=== PATIENT | male | born 1980 | race Caucasian/White ===

== ENCOUNTER 2016-11-11 08:10 | Emergency (ER) | payer OTHER ==
[2016-11-11 08:16] VITALS: TEMP 98.1
--- NOTE | 2016-11-11 08:22 | CPEKG ---
Heart Rate: 83 RR Interval: 723 P-R Interval: 148 QRSD Interval: 90 QT Interval: 360 QTC Interval: 423 P [place]: 35 QRS [place]: 37 T Wave [place]: -11 EKG Severity - ABNORMAL ECG - EKG Impression: SINUS RHYTHM EKG Impression: NONSPECIFIC T ABNORMALITIES, INFERIOR LEADS Electronically Signed By: Josué Liang 11-Nov-2016 15:55:36
[2016-11-11] MEDS ORDERED: METOCLOPRAMIDE 10 MG/2 ML VIAL IVP ONE (08:37)
[2016-11-11] MEDS ORDERED: KETOROLAC 15 MG/1 ML SDV IVP ONE (08:37)
--- NOTE | 2016-11-11 08:37 | EDPHY ---
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 Patient states his last seizure was about 2 months ago. When every has a seizure is always associated with migraine headache. He usually takes ibuprofen for these. He is seizures and migraines are usually triggered by lack of sleep however he has been sleeping well recently. He does get migraine headaches when he does not have a seizure. Patient had a witnessed tonic- clonic seizure this morning. Now is a headache but is feeling improved. He was initially postictal. Headache right now is about an 8/10. It is not the worst headache of his life. It is similar to his prior episodes. No recent illness. No fevers or chills. No nausea or vomiting. He states that he was started on a new seizure medication 2 months ago. Does not recall the name. He states he has been compliant with medications. He is to be taking Lamictal but was changed off of this. ROS: 10 point Review of Systems is negative except as noted in the HPI. PMH: Seizure disorder, migraine headaches Social History: No smoking, occasional alcohol, no recreational drug use Family History: non-contributory Physical Exam: Gen: Awake, Alert, No Distress HEENT: Nose: no rhinorrhea Eyes: PERRLA, EOMI Mouth: Moist mucosa Neck: Supple, no JVD Chest: nontender, lungs clear to auscultation Heart: S1, S2 normal, no murmur Abd: Soft, non-tender, no guarding Back: no CVA tenderness, no midline tenderness Ext: no edema, non-tender Skin: no rash Neuro: CN II-XII intact, Sensation grossly intact, Strength 5/5 in bilateral upper and lower extremities - Personal History Tetanus Vaccine Date: 2009 - Medical/Surgical History Hx Asthma: No Hx Chronic Respiratory Disease: No Hx Diabetes: No Hx Cardiac Disease: No Hx Renal Disease: No Hx Cirrhosis: No Hx Alcoholism: No Hx HIV/AIDS: No Hx Splenectomy or Spleen Trauma: No Other PMH: occasional back pain/spasm,SEIZURE DISORDER, hand surgery - Social History Smoking Status: Never smoked Constitutional: Initial Vital Signs Temperature (C) 36.7 C 11/11/16 08:14 Heart Rate 81 11/11/16 08:14 Respiratory Rate 17 11/11/16 08:14 Blood Pressure 133/103 H 11/11/16 08:14 O2 Sat (%) 94 11/11/16 08:14 O2 Delivery Mode Room Air Allergies/Adverse Reactions: No Known Allergies Allergy (Verified 12/22/15 08:41) Home Medications: Medication Instructions Recorded Unknown Migraine Med 11/11/16 Medical Decision Making ED Course/Re-evaluation: Patient improved after Toradol and 5th Phenergan. No further seizure activity. Patient's mentation has cleared. Symptoms are consistent with a breakthrough seizure. Will refer for follow up with his neurologist. - Data Points Laboratory Results: 11/11/16 08:19 POC Glucose 80 mg/dL mg/dL (70-100) Medications Given: Discontinued Medications Ketorolac Tromethamine (Toradol) 15 mg IVP EDNOW ONE Stop: 11/11/16 08:38 Last Admin: 11/11/16 08:43 Dose: 15 mg Metoclopramide HCl (Reglan Injection) 10 mg IVP EDNOW ONE Stop: 11/11/16 08:38 Last Admin: 11/11/16 08:43 Dose: 10 mg Point of Care Test Results: 11/11/16 08:19 POC Glucose 80 Departure - Departure Disposition: Home, Routine, Self-Care Clinical Impression: Seizure disorder, Migraine Condition: Good Instructions: Epilepsy (ED) Additional Instructions: Follow up with your neurologist, Dr. Denney, in 2-3 days for re-evaluation. Return to the emergency department for increasing seizures worsening headache, nausea, vomiting, or any other concerns. Referrals: NONE *PRIMARY CARE P,. [Primary Care Provider] - As per Instructions Gabbie Denney [Other] - As per Instructions
[2016-11-11 08:49] VITALS: RESP 18; O2SAT 93
[2016-11-11 09:31] VITALS: BP 126/77; PULSE 81
== END 2016-11-11 09:38 | disposition home or self-care (01) ==
DX: G40.909 Epilepsy, unspecified, not intractable, without status epilepticus (principal); G43.909 Migraine, unspecified, not intractable, without status migrainosus
CPT/HCPCS: 96374; J1885; J2765

== ENCOUNTER → 2017-09-21 | Outpatient (CLI) | payer OTHER | LOC: FIMAGING 11:28 | PROVIDERS: ATTEND Pathology Anatomic Pathology & Clinical Pathology | DX: S62.316A Displaced fracture of base of fifth metacarpal bone, right hand, initial encounter for closed fracture (principal) ==